=== PATIENT | female | born 1990 | race Caucasian/White ===

== ENCOUNTER 2022-03-26 10:04 | Inpatient (IN) ==
[2022-03-26] MEDS ORDERED: Lactated Ringers 1000 ml BAG 1,000 ML IV ONE ×2 (10:19→10:56)
[2022-03-26] MEDS ORDERED: Buffered Lidocaine 1% SYRIN 1 ml INTRADERM ONE (10:19)
[2022-03-26] MEDS ORDERED: Lidocaine 1% w EPI 1:200,000 SDV 30 ML VIAL ONE (10:40)
[2022-03-26] MEDS ORDERED: OBEPIDURAL (200 ML) 200 ML EPIDURAL ONE (10:40)
[2022-03-26 10:54] LABS: Hematocrit 35 % (35-47); Hemoglobin 11.2 g/dL (12.0-16.0); Mean Corpuscular HGB Conc 33 g/dL (31-36); Mean Corpuscular Hemoglobin 26 pg (27-31); Mean Corpuscular Volume 80 fL (80-97); Mean Platelet Volume 8.6 fL (7.4-10.4); Platelet Count 293 10^3/uL (150-450); Red Cell Distribution Width 15 % (10-15)
[2022-03-26] MEDS ORDERED: Lactated Ringers 1000 ml BAG 500 ML IV PRN (10:56)
[2022-03-26] MEDS ORDERED: Sodium Citrate/Citric Acid LIQ 15 ML UDC PO PRN (10:56)
[2022-03-26] MEDS ORDERED: Phenylephrine 40 mcg/mL 10mL (400mcg) SYRINGE IV PUSH PRN ×2 (10:56)
[2022-03-26] MEDS ORDERED: OBEPIDURAL (200 ML) 200 ML EPIDURAL SCH (11:00)
[2022-03-26] MEDS ORDERED: Lactated Ringers 1000 ml BAG 1,000 ML IV SCH ×4 (11:00→17:00)
[2022-03-26 11:24] LABS: ABS Basophils 0.3 10^3/ul (0-0.2); ABS Lymphocytes 0.9 10^3/ul (1.0-4.8); ABS Monocytes 1.4 10^3/ul (0-0.8); ABS Neutrophils 25.3 10^3/ul (1.5-7.7); Lymphocyte % 3.3 %
[2022-03-26 11:29] LABS: RBC Morphology Normal (Normal)
[2022-03-26] MEDS ORDERED: Oxytocin in LR 20 UNITS/1,000 ML BAG IVPB ONE (11:52)
[2022-03-26 12:20] LABS: Urine Appearance Clear; Urine Color Yellow
[2022-03-26 12:21] LABS: Urine Ketones 3+ (80mg/dL) (Negative); Urine Specific Gravity 1.021 (1.002-1.030); Urine Urobilinogen 0.2 (Negative) (Negative); Urine pH 5.5 (5.0-9.0)
[2022-03-26 12:22] LABS: Urine Bilirubin Negative (Negative); Urine Blood 3+ (Large) (Negative); Urine Glucose Negative (Negative); Urine Nitrite Negative (Negative); Urine Protein 1+ (30 mg/dL) (Negative)
[2022-03-26 12:23] LABS: Urine Benzodiazepine Screen None Detected (None Detect); Urine Cannabinoids Screen Presumptive Positive (None Detect); Urine Opiates Screen None Detected (None Detect)
[2022-03-26 12:26] LABS: Urine Bacteria Absent (Absent); Urine Red Blood Cell 2+(6-10/hpf) (Absent); Urine Squamous Epithelial Cell Present (Absent); Urine White Blood Cell 1+(6-10/hpf) (Absent)
[2022-03-26 13:12] LABS: Albumin 3.5 g/dL (3.2-5.2)
[2022-03-26 13:13] LABS: Calcium 9.7 mg/dL (8.6-10.3); Potassium 3.3 mmol/L (3.5-5.0); Total Bilirubin 0.5 mg/dL (0.2-1.0)
[2022-03-26 13:18] LABS: Albumin/Globulin Ratio 1.2 (1-3); Globulin 2.9 g/dL (2-4); Total Protein 6.4 g/dL (6.4-8.9); Uric Acid 7.6 mg/dL (2.3-6.6)
[2022-03-26] MEDS ORDERED: Calcium Carb (TUMS) 500 mg CHEW TAB ONE (13:19)
[2022-03-26 13:23] LABS: eGFR CKD-EPI 85.4 (>60)
[2022-03-26] MEDS ORDERED: ceFOXitin 2 GM IVPREMIX 2 GM/50 ML BAG IVPB ONE (14:21)
[2022-03-26] MEDS ORDERED: ceFOXitin 2 GM IVPREMIX 2 GM/50 ML BAG ONE (14:23)
[2022-03-26] MEDS ORDERED: Sodium Citrate/Citric Acid LIQ 15 ML UDC ONE (14:36)
[2022-03-26] MEDS ORDERED: Lidocaine 2% w/ EPI 1:200,000 MPF 20 ML SDV VIAL ONE (14:37)
[2022-03-26] MEDS ORDERED: fentaNYL 100 mcg/2 ml 50 MCG/ML VIAL ONE (14:37)
[2022-03-26] MEDS ORDERED: Ondansetron 4 mg VIAL 2 MG/ML 2 ml VIAL IV PRN (14:47)
[2022-03-26] MEDS ORDERED: Metoclopramide 5 MG/ML VIAL (10 mg) IV PRN (14:47)
[2022-03-26] MEDS ORDERED: Naloxone 4 mg VIAL (10 ml) 2 MG in NS 0.9% 250 ml 250 ML IV PRN (14:47)
[2022-03-26] MEDS ORDERED: Naloxone 0.4 mg VIAL 0.4 mg/ml 1 ml VIAL IV PRN (14:47)
[2022-03-26] MEDS ORDERED: Dexamethasone IV 4 MG/ML VIAL 1 ml VIAL ONE (15:24)
[2022-03-26] MEDS ORDERED: Morphine PF AMP (0.5MG/ML) 5 MG/10 ML AMP ONE (15:24)
[2022-03-26] MEDS ORDERED: Oxytocin 10 UNITS/ML 1 ML VIAL ONE (15:24)
[2022-03-26] MEDS ORDERED: Ondansetron 4 mg VIAL 2 MG/ML 2 ml VIAL ONE (15:24)
[2022-03-26] MEDS ORDERED: Dibucaine 1% OINT 28.35 GM TUBE PR PRN (16:26)
[2022-03-26] MEDS ORDERED: Glycerin ADULT 2.4 gm SUPP PR PRN (16:26)
[2022-03-26] MEDS ORDERED: Witch Hazel PAD JAR TOPICAL PRN (16:26)
[2022-03-26] MEDS ORDERED: Oxytocin in LR 20 UNITS/1,000 ML BAG IVPB SCH (17:00)
[2022-03-27 06:22] LABS: ABS Lymphocytes 1.5 10^3/ul (1.0-4.8); ABS Monocytes 0.9 10^3/ul (0-0.8); ABS Neutrophils 14.1 10^3/ul (1.5-7.7); Hematocrit 27 % (35-47); Hemoglobin 8.8 g/dL (12.0-16.0); Mean Corpuscular HGB Conc 32 g/dL (31-36); Mean Corpuscular Hemoglobin 26 pg (27-31); Mean Corpuscular Volume 81 fL (80-97); Mean Platelet Volume 8.4 fL (7.4-10.4); Platelet Count 240 10^3/uL (150-450); Red Blood Count 3.37 10^6 /uL (3.70-4.87); Red Cell Distribution Width 15 % (10-15); White Blood Count 16.6 10^3/uL (3.5-10.8)
[2022-03-29 08:59] VITALS: BP 127/85
== END 2022-03-29 12:38 | disposition home or self-care (01) | DRG 540 ==
LOC: MCHOBOUT 10:04 → MCHOB 10:05
PROVIDERS: ADMIT Obstetrics & Gynecology; ATTEND Obstetrics & Gynecology